=== PATIENT | female | born 1945 | race Caucasian/White ===

== ENCOUNTER 2024-09-29 05:19 | Observation (INO) ==
--- NOTE | 2024-09-01 10:21 | PAT Medication Instructions ---
Medication Instructions Date of Service September 01, 2024 Home Medications Medication Instructions Recorded zoledronic acid 5 mg/100 mL in See Rx Instructions IV .COMPLEX 03/26/24 mannitol 5 %-water intravenous #100 mL piggybck (Reclast) walker #1 ea 06/08/24 cholecalciferol (vitamin D3) 50 mcg (2,000 unit) capsule 50 mcg PO QAM zoledronic acid 5 mg/100 mL in mannitol 5 %-water intravenous piggybck (Reclast) See Rx Instructions IV .COMPLEX ascorbic acid (vitamin C) 500 mg tablet (Vitamin C) 500 mg PO QAM aspirin 81 mg tablet,delayed release 81 mg PO HS hydrochlorothiazide 12.5 mg tablet 12.5 mg PO QAM lisinopril 30 mg tablet 30 mg PO QAM metformin 500 mg tablet 500 mg PO QAM rosuvastatin 20 mg tablet 20 mg PO HS ASK your prescriber and surgeon aspirin 81 mg tablet,delayed release 81 mg PO HS zoledronic acid 5 mg/100 mL in mannitol 5 %-water intravenous piggybck (Reclast) See Rx Instructions IV .COMPLEX DO NOT take the morning of surgery cholecalciferol (vitamin D3) 50 mcg (2,000 unit) capsule 50 mcg PO QAM ascorbic acid (vitamin C) 500 mg tablet (Vitamin C) 500 mg PO QAM hydrochlorothiazide 12.5 mg tablet 12.5 mg PO QAM lisinopril 30 mg tablet 30 mg PO QAM metformin 500 mg tablet 500 mg PO QAM Take evening before surgery rosuvastatin 20 mg tablet 20 mg PO HS MORNING OF SURGERY: NOTHING TO EAT OR DRINK AFTER MIDNIGHT Other Notes If you have any questions please call us at [phone] or [phone] or [phone] or [phone]
--- NOTE | 2024-09-04 10:30 | Anesthesiology Consultation ---
Date of Service September 04, 2024 Assessment & Plan (1) Encounter for pre-operative examination: - Check BSG DOS - Infectious disease screening: Per assessment on 09/04/24- No known recent infectious disease contacts or current infectious disease symptoms. - Outpatient joint assessment: Pt currently scheduled for inpatient pathway. If surgeon requests review for outpatient joint pathway, patient is not recommended candidate for outpatient joint program from anesthesia standpoint based on available information. Chart Review Chart Review: Acceptable Risk for Surgery and Patient seen in Pre Admission Testing Teaching & Discussion Pre-Anesthesia Teaching/Discussion Notes: Instructed NPO after midnight before surgery,except medications with 15 cc of water. Medication instructions provided according to the PAT guidelines. History Surgery Operation Date: 09/29/24 07:00 Proposed Procedures p Left Total Hip Arthroplasty - Brayan Anderson MD Height/Weight Height: 5 ft 1.5 in Weight: 79.3 kg Allergies Allergy/AdvReac Type Severity Reaction Status Date / Time bacitracin Allergy Mild Rash Verified 08/31/24 15:24 [From Neosporin ([id number])] latex Allergy Mild Rash (with Verified 09/04/24 13:45 prolonged use of latex gloves) neomycin Allergy Mild Rash Verified 08/31/24 15:24 [From Neosporin ([id number])] polymyxin B Allergy Mild Rash Verified 08/31/24 15:24 [From Neosporin ([id number])] coconut AdvReac Intermediate Nausea/vomi Verified 09/04/24 13:45 ting pineapple AdvReac Intermediate Nausea/vomi Verified 09/04/24 13:45 ting Medications Home Medications Medication Instructions Recorded Confirmed Last Taken cholecalciferol (vitamin D3) 50 50 mcg PO QAM 03/24/24 08/31/24 Unknown mcg (2,000 unit) capsule zoledronic acid 5 mg/100 mL in See Rx Instructions IV .COMPLEX 03/26/24 08/31/24 Unknown mannitol 5 %-water intravenous #100 mL piggybck (Reclast) walker #1 ea 06/08/24 Unknown ascorbic acid (vitamin C) 500 mg 500 mg PO QAM 08/31/24 08/31/24 Unknown tablet (Vitamin C) aspirin 81 mg tablet,delayed 81 mg PO HS 08/31/24 08/31/24 Unknown release hydrochlorothiazide 12.5 mg tablet 12.5 mg PO QAM 08/31/24 08/31/24 Unknown lisinopril 30 mg tablet 30 mg PO QAM 08/31/24 08/31/24 Unknown metformin 500 mg tablet 500 mg PO QAM 08/31/24 08/31/24 Unknown rosuvastatin 20 mg tablet 20 mg PO 08/31/24 08/31/24 Unknown Past Medical History Medical History Arthritis of left hip Bilateral carotid artery stenosis Carotid doppler (04/15/24): <50% LICA stenosis, 50-69% GEORGE stenosis Hyperlipidemia Hypertension Osteoarthritis Osteoporosis Prediabetes Taking Metformin Exercise / Class Metabolic Activity III < 4 Walking/Shop/Light housework (uses cane) Past Family History Family History Mother Heart disease Hypertension Myocardial infarction, Onset Age: 88 Denies family history of Ovarian cancer Prostate cancer Breast cancer Colorectal cancer Past Surgical History Surgical History History of appendectomy History of History of colonoscopy History of postoperative nausea and vomiting History of right hip hemiarthroplasty History of tooth extraction full upper denture Past Anesthesia History No Hx of Anesthesia Complications and No Family Hx of Anesthesia Complications History of PONV No Hx of Motion Sickness and History of PONV Social History Smoking Status: Former smoker Do You Dip or Chew Tobacco: No Smoking End Date: Quit 2012 Hx Alcohol Use: Yes (1 drink of gin a week) Alcohol type: hard liquor alcohol intake frequency: a few times a month Hx Substance Use: No substance use type: does not use Review of Systems Patient denies chest pain, shortness of breath, fever, chills, cough, wheezing, palpitations. Physical Exam Vital Signs BP 111/69 P 67 TEMP 98.0 SP02 96%RA RESP 16 Physical Full cervical extension range of motion. Full TMJ range of motion. TMD 3 finger breaths Mallampati Score III Dentition: full upper plate Lungs: clear throughout to auscultation Cardiac: regular rate and rhythm, no murmurs noted Spine: normal Carotid arteries: negative bruit Extremities: no LE edema Lab Results Anesthesia Preop Results Results Anesthesia Widget: WBC 8.65 K/ul (4.8-10.8) 09/04/24 Hgb 13.1 g/dl (12.0-16.0) 09/04/24 Hct 41.8 % (37.0-47.0) 09/04/24 Plt 198 K/uL (130-400) 09/04/24 Na 139 mmol/L (136-145) 09/04/24 K 3.7 mmol/L (3.5-5.1) 09/04/24 Cl 100 mmol/L (98-107) 09/04/24 CO2 31 mmol/L (21-32) 09/04/24 BUN 18 mg/dl (6-23) 09/04/24 Creat 0.86 mg/dl (0.6-1.2) 09/04/24 Glucose Level 90 mg/dl (70-99(Fasting)) 09/04/24 PT 10.3 Seconds (9.0-12.0) 09/04/24 PTT 25 Seconds (21-31) 09/04/24 INR 0.9 (0.9-1.1) 09/04/24 HA1c 6.3 % (4.5-5.6) H 09/04/24 Blood Type A Positive 09/04/24 Antibody Screen NEGATIVE 09/04/24 Testing Electrocardiogram Date: 09/04/24 NSR at 62bpm. "Normal ECG" Chest X-Ray Date: 09/04/24 FINDINGS: Heart size and pulmonary vasculature are normal. Lungs are hyperexpanded. No consolidation or pleural effusion. There is mild scoliosis and degenerative change of the thoracic spine. IMPRESSION: No acute findings. Echocardiogram Date: 08/25/21 EF 55-60%. Normal wall motion. Mildly increased wall thickness. Diastolic dysfunction present with normal LV EF.
[2024-09-29] MEDS: LR 60ML/HR IV SCH (05:57)
[2024-09-29] MEDS: LR 500ML BOLUS, THEN 15ML/HR IV SCH (05:57)
[2024-09-29] MEDS: ACETAMINOPHEN 500 MG TAB PO SCH ×2 (05:57→10:59)
[2024-09-29] MEDS: CeleBREX 200 MG CAP PO SCH (05:58)
[2024-09-29] MEDS: METOCLOPRAMIDE HCL 10 MG TABLET PO SCH (05:58)
[2024-09-29] MEDS: FAMOTIDINE 20 MG TAB PO SCH (05:58)
[2024-09-29] MEDS: dexAMETHasone**PF** 10 MG/ML VIAL IV SCH (05:58)
[2024-09-29] MEDS ORDERED: BUPIVACAINE 0.5 % 5 MG/1 ML PF 10ML VIAL ONE (06:28)
[2024-09-29] MEDS ORDERED: fentaNYL citrate PF 100 MCG/2 ML VIAL ONE (06:37)
[2024-09-29] MEDS ORDERED: MIDAZOLAM HCL 1 MG/ML 2ML VIAL ONE (06:37)
[2024-09-29] MEDS ORDERED: PROPOFOL IV EMULSION 10 MG/ML 20 ML VIAL IV ONE (06:41)
--- NOTE | 2024-09-29 06:41 | History & Physical Bridge Note ---
Date of Service September 29, 2024 History & Physical Bridge Note I have examined the patient, reviewed the History & Physical and in the interval since the performance of the History & Physical I have noted the following changes of clinical significance: no changes noted
[2024-09-29] MEDS: TRANEXAMIC ACID 1,000 MG **IV Pre-op IV SCH (06:44)
[2024-09-29] MEDS: ceFAZolin 2000MG 2,000 MG/15 ML SYR IV SCH ×2 (07:07→14:13)
[2024-09-29] MEDS ORDERED: ONDANSETRON INJ 2 MG/ML 2 ML VIAL ONE (07:19)
[2024-09-29] MEDS ORDERED: ePHEDrine sulfate 50 MG/ML AMP ONE (07:19)
[2024-09-29] MEDS ORDERED: PHENYLEPHRINE 100MCG/ML 5ML SYR ONE (07:32)
[2024-09-29] MEDS: BUPIVACAINE/EPINEPHRINE 0.5% MPF 1:200,000 30 ML VIAL ONE (07:45)
--- NOTE | 2024-09-29 09:01 | Operative Report ---
PG Post Operative Report Pre & Post Diagnosis Operation Date: 09/29/24 07:00 Pre-Op Diagnosis: Left Hip Osteoarthritis Post-Op Diagnosis: Left Hip Osteoarthritis I identified the patient and participated in the time-out.: Yes Procedure Operation Date: 09/29/24 07:00 Actual Procedures p Left Total Hip Arthroplasty, cemented(Left) - Brayan Anderson MD Surgeon Brayan Anderson MD Personnel And Payroll Technician Max Rosas PA-C Estimated Blood Loss 100 Findings Consistent with Post-Op Diagnosis Specimens Left femoral head sent for pathology. Anesthesia Type Spinal MAC Complications none Disposition Accompanied Patient To Recovery: No Indications Patient is an 79-year-old female who is 12 years out from a right hip replacement done in [place]. As she now lives in this area and developed increasing left hip pain discomfort is gotten worse over the past 5 to 10 years. She failed conservative measures. Hip was really limiting her activities. She elected proceed with total hip arthroplasty. Description of Procedure Operative implants consist of: 1. Biomet G7 size 54 mm acetabular shell. 2 Laurel hole paving supervisor. 3. Highly cross-linked polyethylene liner with a 54 mm outer diam and 36 mm inner diameter. 4. 6.5 cancellous acetabular screws 1 at 35 mm in length and 1 of 30 mm length. 5. DePuy Keith size 3 high offset cemented femoral stem. 6. +5/36 mm ceramic articular ball. The patient was taken the op room, identified, placed on the operating table in the supine position. All contact areas were appropriately padded. IV antibiotics fibra anesthesia team. A spinal anesthetic had been provided in the holding area. A Freedman catheter was placed in sterile fashion. The patient then placed in the right lateral decubitus position. An axillary roll was placed. A stool Birkett position was used for positioning. The left hip and leg were then prepped and draped in usual sterile fashion. A posterolateral approach to the left hip was then performed to a curvilinear incision centered over the greater trochanter. Sharp dissection Through subcutaneous tissue dental of the IT band gluteal fascia with the IT band gluteal fascia incised longitudinally in line with skin incision. The underlying greater bursa was excised. The piriformis and external rotators along with the posterior joint capsule were then released from the posterior aspect the hip as a single layer. Great care was taken throughout the procedure to protect the sciatic nerve at all times. The hip was internally rotated and dislocated. Femoral neck osteotomy cut was made with Final Cut about a centimet er above the lesser trochanter. Femoral head was removed and sent for pathology. The femur was retracted anteriorly. Attention then drawn the acetabulum. The acetabulum labrum was excised. The pulmonary fat was excised. Sequential reaming the acetabulum was then performed beginning with size 45 and progressing up to 53. I then reamed a little bit with a 54 reamer and placed a 54 mm cup in about 4 degree lateral opening and 20 degrees of anteversion. It was fixed with two 6.5 screws. A trial liner was placed. Attention drawn the femur. The proximal femur was entered with her followed by canal finder and lateralizing reamer. I then broached beginning a size 1 and progressing to a 2. We even had difficulty getting the to down. We left the same we trialed it with a high offset neck and a created excellent soft tissue tension and stability. Leg lengths seemed equal. We elected to place his implants. All trial implants were removed. An apex hole paving supervisor was placed. Highly cross-linked polyethylene liner was placed. A small cement restrictor was placed down the canal. The canal was irrigated and dried. A double batch Palacos G cement was mixed and injected in the canal. A size 3 high offset Keith cemented stem was stem was then placed. Once the cement hardened a +5/36 mm ceramic articular ball was placed. Hip was located once again found to be stable. Attention drawn toward closing. Wounds irrigated close's pulsatile lavage solution. I injected locally with 60 cc of half percent Marcaine with epinephrine. The posterior capsule and external rotators then repaired through drill holes in the posterior trochanter with #2 Tycron suture. The IT band gluteal fascia then closed in 1 PDS suture in a running fashion the subcutaneous tissue then closed with 2 layers of the deep layer #2 Vicryl suture subcutaneous tissues with 2-0 Dexon suture in a buried interrupted fashion. Skin was closed skin gavi. Leg was then cleaned and dried a Prevena VAC dressing was applied due to the thick soft tissue envelope. The patient then transferred to the recovery room in stable condition. Patient tolerated the procedure well and there were no complication tristan Rosas, my physician patient assistant, was present for the entire procedure. His assistance was essential and required for appropriate patient positioning, prepping and draping, surgical exposure, performing the technical details of the operation, placement the implants, closure of the wound, and placement of the sterile bandage. I attest to the content of the Intraoperative Record and any orders documented therein. Any exceptions are noted below.
--- NOTE | 2024-09-29 09:28 | XRay Report ---
XR hip 1V LT w pelvis CLINICAL HISTORY: Postoperative evaluation. COMPARISON: Left hip radiographs June 08, 2024. FINDINGS: Alignment of the total left hip arthroplasty is anatomic. There is no periprosthetic fract ure or unexpected radiopaque foreign body. There are skin gavi. Right hip arthroplasty is noted. IMPRESSION: Expected findings following total left hip arthroplasty. ACT 112: Negative or not required by law. Electronically signed by: Misbah Burrows M.D. 09/29/2024 9:27 AM
[2024-09-29] MEDS ORDERED: METOCLOPRAMIDE HCL INJ 5 MG/ML 2 ML VIAL IV PRN (09:53)
[2024-09-29] MEDS ORDERED: GLUCOSE 10 TAB/TUBE PO PRN (09:53)
[2024-09-29] MEDS ORDERED: traMADol HCL 50 MG TABLET PO PRN (09:53)
[2024-09-29] MEDS ORDERED: HYDROmorphone INJ 0.5 MG/0.5 ML SYR IV PRN (09:53)
[2024-09-29] MEDS ORDERED: ZOLEDRONIC ACID 5 MG/100 ML VIAL IV SCH (09:53)
[2024-09-29] MEDS ORDERED: bisacodyL 10 MG SUPP PR PRN (09:53)
[2024-09-29] MEDS ORDERED: GLUCOSE 40% GEL 15 GM TUBE PO PRN (09:53)
[2024-09-29] MEDS ORDERED: CARBOHYDRATES FOR HYPOGLYCEMIA PO PRN (09:53)
[2024-09-29] MEDS ORDERED: ALUMINUM/MAGNESIUM SUSP 30 ML UDC PO PRN (09:53)
[2024-09-29] MEDS ORDERED: NALOXONE HCL 0.4 MG/1 ML VIAL/CARP IV PRN (09:53)
[2024-09-29] MEDS ORDERED: ONDANSETRON INJ 2 MG/ML 2 ML VIAL IV PRN (09:53)
[2024-09-29] MEDS ORDERED: GLUCAGON FOR INJ 1 MG VIAL SQ PRN (09:53)
[2024-09-29] MEDS ORDERED: DEXTROSE 50% 50 ML SYRINGE IV PRN (09:53)
[2024-09-29] MEDS ORDERED: MAGNESIUM HYDROXIDE SUSP 30 ML UDC PO PRN (09:53)
--- NOTE | 2024-09-29 10:02 | Anesthesiology Progress Note ---
Date of Service September 29, 2024 Anesthesia Post Procedure Vital Signs Vital Signs: Temp Pulse Pulse Resp BP BP Pulse Ox 09/29/24 09:40 36.4 C L 78 18 117/68 93 09/29/24 09:20 36.4 C L 84 14 108/69 98 09/29/24 09:10 93 H 17 97/54 L 93 09/29/24 09:00 90 19 117/53 L 98 09/29/24 08:54 36.9 C 90 18 101/45 L 98 09/29/24 05:42 36.4 C L 71 18 165/75 H 95 O2 Del Method O2 Flow Rate 09/29/24 09:40 Room Air 09/29/24 09:20 Room Air 09/29/24 09:10 Room Air 09/29/24 09:00 Oxymask 5 09/29/24 08:54 Oxymask 5 09/29/24 05:42 Room Air Pain Intensity Left Hip: Pain Intensity: 2 Transfer of Care Handoff Completed per policy Notes Mental Status: alert / awake / arousable and participated in evaluation Patient Amnestic to Procedure: Yes Nausea / Vomiting: adequately controlled Pain: adequately controlled Airway Patency, RR, SpO2: stable & adequate BP & HR: stable & adequate Hydration State: stable & adequate Anesthetic Complications: no major complications apparent
[2024-09-29] MEDS ORDERED: PHARMACY GLYCEMIC MGMT CONSULT PRN (10:30)
--- NOTE | 2024-09-29 10:37 | Pharmacy Report ---
Pharmacy Glycemic Short Note 2 - Date of Service September 29, 2024 - Glycemic Short BSG Results (Last 24 hours): 09/29/24 09/29/24 05:37 09:46 POC Glucose 119 H 158 H OUTPATIENT ANTIDIABETIC REGIMEN: * Metformin 500 mg PO AM HbA1c: * 6.3% (09/04/24) ASSESSMENT: * 79 yo F admitted on 09/29/24 postoperatively following a left total hip arthroplasty. Pharmacy has been consulted to assist with inpatient glycemic management. Patient is a Type 2 diabetic as an outpatient. Please refer to outpatient regimen and most recent HbA1c above. * Preop BSG was 119 mg/dL while postop BSG was 158 mg/dL. Received 10 mg of IV dexamethasone preoperatively and scheduled to receive another one-time dose of 10 mg IV dexamethasone tomorrow morning. Ordered a T2DM diet, will follow to see if patient tolerates at lunch. * Will order basal at ~0.2 units/kg which is aligned with weight/stress of 2. Novolog will be based on weight/stress of 3 for now until steroids wear off. Goal range of 110-140 mg/dL with hopes of keeping postop BSGs below 180 mg/dL. No overnight checks needed. PLAN FOR INPATIENT GLYCEMIC CONTROL: * Hold outpatient oral diabetes medications * Basal insulin * Lantus 15 units SC daily * Bolus insulin * NovoLog per scale ACHS or Q6hrs while NPO * Goal Range: Low 110 mg/dL - High 140 mg/dL * Correction Factor: 20 mg/dL/unit * Nutritional / Prandial insulin per carb ratio of 1 unit per 7 grams CHO consumed
[2024-09-29] MEDS: SENNA 8.6 MG TAB PO SCH (10:48)
[2024-09-29] MEDS: KETOROLAC TROMETHAMINE 15 MG/ML VIAL IV SCH (10:48)
[2024-09-29] MEDS: DOCUSATE SODIUM 100 MG CAP PO SCH (10:48)
[2024-09-29] MEDS: ASCORBIC ACID 500 MG TAB PO SCH (10:49)
[2024-09-29] MEDS: hydroCHLOROthiazide 25 MG TAB PO SCH (10:49)
[2024-09-29] MEDS: ASPIRIN 81 MG ECTAB PO SCH (10:49)
[2024-09-29] MEDS: CHOLECALCIFEROL 25 MCG (1000 UNITS) TAB PO SCH (10:50)
[2024-09-29] MEDS: lisinopril 10 MG TAB PO SCH (10:50)
[2024-09-29] MEDS: MULTIVITAMIN TAB PO SCH (10:51)
[2024-09-29] MEDS: INSULIN ASPART PER UNIT CHARGE SC SCH (12:31)
[2024-09-29] MEDS: LANTUS PER UNIT CHARGE SC SCH (12:32)
[2024-09-29] MEDS: TRANEXAMIC ACID / 0.7% NACL 1,000 MG/100 ML BAG IV SCH (14:13)
[2024-09-29] MEDS: ROSUVASTATIN CALCIUM 20 MG TAB PO SCH (19:39)
[2024-09-29] MEDS ORDERED: SENNA 8.6 MG TAB PO SCH (21:00)
[2024-09-30 06:31] LABS: Basophils # (auto) 0.02 K/uL (0.00-0.20); Basophils % (auto) 0.1 %; Eosinophils # (auto) 0.03 K/uL (0.00-0.50); Eosinophils % (auto) 0.2 %; Hematocrit (blood only) 32.8 % (37.0-47.0); Hemoglobin 10.6 g/dl (12.0-16.0); Immature Granulocytes # (auto) 0.12 K/uL (0.01-0.20); Immature Granulocytes % (auto) 0.7 %; Lymphocytes # (auto) 1.31 K/uL (1.20-3.40); Mean Corpuscular Hgb Conc 32.3 g/dL (32.0-36.0); Mean Corpuscular Volume 86.8 fL (80.0-100.0); Mean Platelet Volume 13.1 fL (9.4-12.4); Monocytes # (auto) 1.13 K/uL (0.11-0.59); Monocytes % (auto) 6.9 %; Neutrophils # (auto) 13.68 K/uL (1.40-6.50); Neutrophils % (auto) 84.1 %; Platelet Count 180 K/uL (130-400); RDW Coefficient of Variation 13.8 % (11.5-14.5); RDW Standard Deviation 43.2 fL (36.4-46.3); Red Blood Count 3.78 M/uL (4.20-5.40); White Blood Count 16.29 K/ul (4.8-10.8)
[2024-09-30 07:02] LABS: BUN Creatinine Ratio 29.4 (10-20); Calcium 9.1 mg/dl (8.6-10.3); Creatinine Clr Calc Pharmacy 50.4 ml/min; Potassium 4.6 mmol/L (3.5-5.1)
[2024-09-30] MEDS: dexAMETHasone 10 MG in SYRINGE 0 ML IV SCH (08:14)
[2024-09-30] MEDS: LANTUS PER UNIT CHARGE SC SCH (08:14)
--- NOTE | 2024-09-30 11:28 | Orthopedic Progress Note ---
Date of Service September 30, 2024 Assessment & Plan (1) S/P total left hip arthroplasty: (2) Aftercare following left hip joint replacement surgery: Plan 79-year-old woman POD# 1 s/p left total hip replacement, doing well overall. Pain is relatively well-controlled. Medically stable. Prosthetic hip is located. She is neurologically intact. Plan: 1. DVT prophylaxis w/ thigh-high TEDs, SCDs, ASA 81 mg BID. 2. PT/OT as tolerated. WBAT on LLE. Left posterolateral approach total hip precautions/protocol. 3. Pain control doing well with current pain regimen. 4. Disposition - plan to D/C home w/ [employer], but not until tomorrow, 10/01, due to not having assistance at home today. 5. F/u as scheduled w/ first post-op visit. Subjective Patient is POD# 1 s/p left total hip arthroplasty by Dr. Anderson on 09/30/2023. Patient says her pain is well-controlled this morning. Denies CP, SOB, N/V, R LE paresthesia. She was reporting some left calf pain last night, but says that she has not had that sensation since then. She is denying calf pain this morning. She has [employer] arranged to come to the house for therapy, and she initially did want to go home today, but says that her daughter got unexpectedly called into some meeting today, so she is not available to help her later today, and so the patient prefers to stay until tomorrow if possible. Review of Systems All systems reviewed & are unremarkable except as noted in HPI & below. Physical Exam GENERAL: AA&Ox3, NAD. Pleasant, affect is calm. Sitting in bedside chair and appears comfortable. RESPIRATORY: Normal respiratory effort with no signs of distress. CHEST/AXILLA: Chest movement symmetrical. No deformities noted. CARDIOVASCULAR: No edema noted. SKIN: [place], warm and dry. MS/EXTREMITY: Hip dressing Prevena vac c/d/i; good seal/suction noted. Thigh is soft, supple. Leg lengths are equal. + ankle dorsi/plantarflexion. NVI distally. Calf soft/NT. Negative Homans' sign. PT/DP pulses intact, 2+. Results & Data Results & Data Laboratory Results . Laboratory Results - last 24 hr 09/29/24 09/29/24 09/29/24 11:53 16:35 20:37 WBC RBC Hgb Hct MCV MCH MCHC RDW Std Deviation RDW Coeff of Felipe Plt Count MPV Immature Gran % (Auto) Neut % (Auto) Lymph % (Auto) [place] % (Auto) Eos % (Auto) Baso % (Auto) Neut # (Auto) Lymph # (Auto) [place] # (Auto) Eos # (Auto) Baso # (Auto) Immature Gran # (Auto) Sodium Potassium Chloride Carbon Dioxide Anion Gap BUN Creatinine Est Cr Clr Drug Dosing eGFR BUN/Creatinine Ratio Glucose POC Glucose 228 H 158 H 135 H Calcium 09/30/24 09/30/24 05:49 07:46 WBC 16.29 H RBC 3.78 L Hgb 10.6 L Hct 32.8 L MCV 86.8 MCH 28.0 MCHC 32.3 RDW Std Deviation 43.2 RDW Coeff of Felipe 13.8 Plt Count 180 MPV 13.1 H Immature Gran % (Auto) 0.7 Neut % (Auto) 84.1 Lymph % (Auto) 8.0 [place] % (Auto) 6.9 Eos % (Auto) 0.2 Baso % (Auto) 0.1 Neut # (Auto) 13.68 H Lymph # (Auto) 1.31 [place] # (Auto) 1.13 H Eos # (Auto) 0.03 Baso # (Auto) 0.02 Immature Gran # (Auto) 0.12 Sodium 137 Potassium 4.6 Chloride 102 Carbon Dioxide 28 Anion Gap 7 BUN 25 H Creatinine 0.85 Est Cr Clr Drug Dosing 50.4 eGFR 68.79 BUN/Creatinine Ratio 29.4 H Glucose 118 H POC Glucose 115 H Calcium 9.1 Diagnostic Findings . Hip/Pelvis X-Ray 09/29/24 08:54 XR hip 1V LT w pelvis CLINICAL HISTORY: Postoperative evaluation. COMPARISON: Left hip radiographs June 08, 2024. FINDINGS: Alignment of the total left hip arthroplasty is anatomic. There is no periprosthetic fracture or unexpected radiopaque foreign body. There are skin gavi. Right hip arthroplasty is noted. IMPRESSION: Expected findings following total left hip arthroplasty. ACT 112: Negative or not required by law. Electronically signed by: Misbah Burrows M.D. 09/29/2024 9:27 AM PG Care Time/CCT Total # of Minutes Spent Total Time Spent with Patient: Total time spent is greater than 50% in coordination of care (as documented) at patient's floor/unit and/or counseling patient: [place] [address] Post Operative Follow-Up Patient Type Established Medical Decision Making Low Complexity Diagnoses S/P total left hip arthroplasty Z96.642 Aftercare following left hip joint replacement surgery Z47.1; Z96.642
--- NOTE | 2024-09-30 12:06 | Pharmacy Report ---
Pharmacy Glycemic Short Note 2 - Date of Service September 30, 2024 - Glycemic Short BSG Results (Last 24 hours): 09/29/24 09/29/24 09/30/24 16:35 20:37 05:49 Glucose 118 H POC Glucose 158 H 135 H 09/30/24 09/30/24 07:46 11:52 Glucose POC Glucose 115 H 140 H OUTPATIENT ANTIDIABETIC REGIMEN: * Metformin 500 mg PO AM HbA1c: * 6.3% (09/04/24) ASSESSMENT: 09/30: * Funmilayo received 36 units of insulin postoperatively yesterday, 15 of which were basal. BSGs were: 228-158-135 mg/dL. * Fasting BSG controlled at 115 mg/dL this AM. Will reduce basal by one-third this AM as patient will receive last dose of IV dexamethasone today. * Novolog parameters will be loosened given trend down in postprandials last evening. 09/29: * 79 yo F admitted on 09/29/24 postoperatively following a left total hip arthroplasty. Pharmacy has been consulted to assist with inpatient glycemic management. Patient is a Type 2 diabetic as an outpatient. Please refer to outpatient regimen and most recent HbA1c above. * Preop BSG was 119 mg/dL while postop BSG was 158 mg/dL. Received 10 mg of IV dexamethasone preoperatively and scheduled to receive another one-time dose of 10 mg IV dexamethasone tomorrow morning. Ordered a T2DM diet, will follow to see if patient tolerates at lunch. * Will order basal at ~0.2 units/kg which is aligned with weight/stress of 2. Novolog will be based on weight/stress of 3 for now until steroids wear off. Goal range of 110-140 mg/dL with hopes of keeping postop BSGs below 180 mg/dL. No overnight checks needed. PLAN FOR INPATIENT GLYCEMIC CONTROL: * Hold outpatient oral diabetes medications * Basal insulin * Lantus 10 units SC daily * Bolus insulin * NovoLog per scale ACHS or Q6hrs while NPO * Goal Range: Low 110 mg/dL - High 140 mg/dL * Correction Factor: 25 mg/dL/unit * Nutritional / Prandial insulin per carb ratio of 1 unit per 8 grams CHO consumed
[2024-09-30 19:48] VITALS: RESP 16
--- NOTE | 2024-10-01 07:12 | Orthopedic Progress Note ---
Date of Service October 01, 2024 Assessment & Plan (1) Aftercare following left hip joint replacement surgery: Continue PT/OT, wbat, hip precautions d/c planning: home with home health today continue prevena vac dressing to left hip. Home health can change at home when it stops working dvt prophylaxis: teds, scd's, aspirin follow up with Dr Anderson in approximately 2-3 weeks post Subjective .79 year old patient POD 2 from left nestor. Apparently the prevena vac wasn't working overnight and was changed. Not really having pain. No other complaints. Review of Systems All systems reviewed & are unremarkable except as noted in HPI & below. Physical Exam . alert and oriented. NAD VSS Left leg: good alignment, hip appears located. Prevena vac in place and appears to be working properly. Able to dorsiflex, plantarflex, lift leg. NVI Results & Data Results & Data Laboratory Results . Diagnostic Findings . PG Care Time/CCT Total # of Minutes Spent Total Time Spent with Patient: Total time spent is greater than 50% in coordination of care (as documented) at patient's floor/unit and/or counseling patient: Coding Level of Care Code 34855 Post Operative Follow-Up Diagnoses Aftercare following left hip joint replacement surgery Z47.1; Z96.642
[2024-10-01 07:36] VITALS: PULSE 89; TEMP 97.5; O2SAT 90
[2024-10-01 11:55] VITALS: BP 124/75
== END 2024-10-01 12:52 | disposition home health service (06) ==
LOC: 3E 05:19 → ASU 05:19